=== PATIENT | female | born 1980 | race American Indian/Alaskan Native ===

== ENCOUNTER 2016-10-05 10:23 | Emergency (ER) | payer MEDICAID ==
[2016-10-05 10:27] VITALS: BMI 40.8
[2016-10-05 10:30] VITALS: TEMP 98.2
--- NOTE | 2016-10-05 10:49 | ED PDOC ---
Arrival/HPI - General Chief Complaint: ENT Problem Time Seen by Provider: 10/05/16 10:25 Historian: Patient - History of Present Illness Narrative History of Present Illness (Text): 10/05/16 10:46 Sarah Cain is a 36 year old female who presents to the emergency department complaining of pain and swelling to throat for past week. Reports that symptoms have worsened over the past 2 days and reports of difficulty swallowing. States that she has not eaten or drank anything due to the pain for the past 2 days. Patient is currently 6 weeks . Reports of intermittent fever at home with a temperature of 100.5F. Denies headache,dizziness, chest pain, shortness of breath, nausea, vomiting, diarrhea, abdominal pain, or any other complaints at this time. Time/Duration: 1 week Symptom Onset: Gradual Symptom Course: Unchanged Severity Level: Mild Activities at Onset: Light Past Medical History - Provider Review Nursing Documentation Reviewed: Yes - Tetanus Immunization Tetanus Immunization: Unknown - Psychiatric Hx Substance Use: No Family/Social History - Physician Review Nursing Documentation Reviewed: Yes Family/Social History: No Known Family HX Smoking Status: Never Smoked Hx Alcohol Use: No Hx Substance Use: No Allergies/Home Meds Allergies/Adverse Reactions: Allergies shellfish derived Allergy (Verified 10/05/16 10:26) ANGIOEDEMA Home Medications: Home Meds Medication Instructions Recorded Confirmed Amoxicillin [Amoxicillin] 500 mg PO BID 10/05/16 10/05/16 Review of Systems - Physician Review All systems were reviewed & negative as marked: Yes - Review of Systems Constitutional: Fevers. absent: Fatigue ENT: Other (throat pain and swelling ) Respiratory: Normal. absent: SOB, Cough, Sputum Cardiovascular: Normal. absent: Chest Pain Gastrointestinal: Normal. absent: Abdominal Pain, Diarrhea, Nausea, Vomiting Genitourinary Female: Normal. absent: Dysuria Neurological: Normal. absent: Headache, Dizziness Psychiatric: Normal Physical Exam - Physical Exam Narrative Physical Exam (Text): Constitutional: No acute distress. Head: Normocephalic. Atraumatic. Eyes: PERRL. ENT: Moist mucous membranes. Swelling to left peritonsillar space. Uvular deviation to right. Airway patent, no drooling or stridor. Neck: Supple. Cardiovascular: Regular rate. Chest: No tenderness. Respiratory: Clear to auscultation bilaterally. GI: Soft. Nontender. Nondistended. Back: No CVA tenderness. Musculoskeletal: No tenderness or swelling of extremities. Skin: No rash. Neurologic: Alert, no focal deficit. Vital Signs Reviewed: Yes Vital Signs Temp Pulse Resp BP Pulse Ox 10/05/16 10:26 98.2 F 104 H 15 124/63 97 Temperature: Afebrile Blood Pressure: Normal Pulse: Tachycardic Respiratory Rate: Normal Appearance: Positive for: Well-Appearing, Non-Toxic, Comfortable Pain Distress: None Mental Status: Positive for: Alert and Oriented X 3 Medical Decision Making ED Course and Treatment: 10/05/16 10:51 Impression: A 36 year old female who presents to the emergency department for pain and swelling to throat for 1 week worsening over past 2 days. Differential Diagnosis include but are not limited to: Peritonsillar Abscess Progress Notes: 10/05/16 11:19 Case discussed with ENT,, who recommends that the patient present directly to his office 10 minute walk away at [place] at 1 pm to drain the [employer]. Will administer dose of clindamycin, will forego steroids due to . - Medication Orders Current Medication Orders: Discontinued Medications Clindamycin Phosphate (Cleocin) 300 mg IM STAT STA PRN Reason: Protocol Stop: 10/05/16 11:28 - Scribe Statement The provider has reviewed the documentation as recorded by the Elma Singh Provider Attestation: All medical record entries made by the Lizibhema were at my direction and personally dictated by me. I have reviewed the chart and agree that the record accurately reflects my personal performance of the history, physical exam, medical decision making, and the department course for this patient. I have also personally directed, reviewed, and agree with the discharge instructions and disposition. Disposition/Present on Arrival - Present on Arrival Any Indicators Present on Arrival: No History of DVT/PE: No History of Uncontrolled Diabetes: No Urinary Catheter: No History of Decub. Ulcer: No History Surgical Site Infection Following: None - Disposition Have Diagnosis and Disposition been Completed?: Yes Diagnosis: Peritonsillar abscess Disposition: HOME/ ROUTINE Disposition Time: 11:20 Patient Plan: Discharge Condition: STABLE Discharge Instructions (ExitCare): Peritonsillar Abscess (ED) Additional Instructions: Go directly to Dr. Maciel's office. A map with directions is attached. Referrals: Jason Maciel DO [Staff Provider] - Follow up with primary
[2016-10-05] MEDS ORDERED: Clindamycin 150 mg/mL Inj IM STA (11:27)
[2016-10-05 12:44] VITALS: BP 127/62; PULSE 96; RESP 16; O2SAT 98
== END 2016-10-05 12:45 | disposition home or self-care (01) ==
LOC: ED 10:23
DX: O26.891 Other specified pregnancy related conditions, first trimester (principal); Z3A.01 Less than 8 weeks gestation of pregnancy; J36 Peritonsillar abscess